=== PATIENT | female | born 1945 | race Caucasian/White ===

== ENCOUNTER 2018-12-20 19:27 | Observation (INO) ==
--- NOTE | 2018-12-20 19:33 | Emergency Department Note ---
Disposition Clinical Impression: Acute exacerbation of chronic obstructive airways disease Altered mental status Qualifiers: Altered mental status type: somnolence Qualified Code(s): R40.0 - Somnolence Acute respiratory failure Qualifiers: Respiratory failure complication: hypercapnia Qualified Code(s): J96.02 - Acute respiratory failure with hypercapnia Alcohol intoxication Qualifiers: Complication of substance-induced condition: uncomplicated Qualified Code(s): F10.920 - Alcohol use, unspecified with intoxication, uncomplicated Disposition: Admitted As Inpatient Condition: Fair Time of Disposition: 21:28 Altered Mental Status HPI - General Chief Complaint: ED Altered Mental Status Stated Complaint: POSSIBLE STROKE /AMS Time Seen by Provider: 12/20/18 19:30 Source: patient, EMS Mode of arrival: EMS Limitations: altered mental status Nursing Notes Reviewed: Yes Vital Signs Reviewed: Yes - History of Present Illness HPI Narrative: Patient has been brought in by EMS with a report of altered mental status. She was found poorly responsive on the floor at about 6:15 this evening. Squad was dispatched 6:48 PM. A grandson had gone over to do some yard work and found her on the floor. Her last visualized well was early in the morning but she was texting family as recently as 4 in the afternoon and was not having any stated trouble. She has not had any apparent trauma. Initially she was not speaking and she seemed to have a weak post secondary professional in the left hand. She has been brought in by EMS for evaluation. private equity associate were told that she is normally alert, ambulatory, walking about and driving herself. On arrival here she is answering all questio ns and following all commands. She is talking but weakly and is oriented to person, place and time. She does not have recollection of what happened or why she was on the floor. Patient specifically denied any type of headache or difficulty with vision. She makes good eye contact. Chest chest pain, palpitation or shortness of breath. She is audibly wheezing, however, and appears dyspneic. She has abdominal pain, nausea or vomiting. She follows all commands and moves all extremities. She denies a feeling of localized weakness or numbness. MD complaint: altered mental status, confusion, decreased responsiveness, weakness Onset (ago): hour(s) Timing confirmed by: family member Pain Severity: none Consistency of Symptoms: constant (Improving) Associated symptoms: Reports: malaise, weakness, difficulty walking. Denies: chest pain, cough, diaphoresis, fever, chills, headaches, loss of appetite, nausea/vomiting, rash, seizure, shortness of breath, syncope, foul smelling urine, diarrhea, incontinence Treatments prior to arrival: EMS treatment/medication - Related Data Home Medications Medication Instructions Recorded Confirmed Budesonide/Formoterol 160/4.5 2 puff IH BID 08/13/16 07/21/17 [Symbicort 160/4.5] Carvedilol 12.5 mg PO BID 08/13/16 07/21/17 Furosemide [Lasix] 40 mg PO DAILY 08/13/16 07/21/17 Ipratropium/Albuterol Neb [Duoneb] 3 ml IH Q6H PRN 08/13/16 07/21/17 Lisinopril [Zestril] 10 mg PO DAILY 08/13/16 07/21/17 Potassium Chloride [Klor-Con 8 meq PO DAILY 08/13/16 07/21/17 Sprinkle] Ubidecarenone/Vitamin E Mixed 1 cap PO DAILY 08/13/16 07/21/17 [Ffy95-Sts E 100 mg-10 Unit Sfg] BuPROPion SR (12 HR) [Wellbutrin 150 mg PO BID 07/09/17 07/21/17 SR] Previous Rx's Medication Instructions Recorded predniSONE [PredniSONE] 10 mg PO DAILY #30 tablet 07/11/17 Clindamycin HCl [Cleocin HCl] 300 mg PO TID #21 capsule 07/21/17 Allergies Allergy/AdvReac Type Severity Reaction Status Date / Time sulfamethoxazole Allergy Rash Verified 12/20/18 19:35 [From Bactrim] trimethoprim [From Bactrim] Allergy Rash Verified 12/20/18 19:35 codeine AdvReac Vomiting Verified 12/20/18 19:35 hydromorphone [From Dilaudid] AdvReac Hallucinati Verified 12/20/18 19:35 ng All systems ED: reviewed and negative except as stated. Past Medical History - Past Medical History Attestation: Yes The following information was validated with the patient. Source: patient, old records reviewed, nursing notes reviewed Medical history: Reports: cardiomyopathy, COPD, hypertension. Denies: seizures Surgical history: Reports: , orthopedic, other Psychiatric history: Reports: anxiety HEARING AID TECHNICIAN history: Reports: no HEARING AID TECHNICIAN history - Social History Smoking Status: Never smoker Smokeless Tobacco Status: No Alcohol use: Reports: none Drug use: Reports: none Physical Exam - General Limitations: altered mental status (Sluggish but appropriate in her responses.) General appearance: in no apparent distress, other (Appear sleepy.) - Head Head exam: atraumatic, normocephalic, normal inspection - Eye Eye exam: Present: normal appearance, PERRL, EOMI, miosis (2-3 mm bilaterally.). Absent: scleral icterus - ENT ENT exam: normal exam, normal oropharynx, mucous membranes moist - Neck Neck exam: Present: normal inspection, full ROM, trachea midline - Chest Chest inspection: Present: normal inspection, symmetric chest wall rise - Respiratory Respiratory exam: Present: wheezes, prolonged expiratory phase. Absent: respiratory distress, accessory muscle use - Cardiovascular Cardiovascular exam: Present: regular rate, normal rhythm, normal heart sounds. Absent: tachycardia - Abdominal Exam Abdominal exam: Present: soft, Non-Tender, normal bowel sounds. Absent: tenderness, distention, guarding, rebound, rigidity - Extremities Exam Extremities exam: Present: normal inspection, full ROM, normal capillary refill. Absent: tenderness, pedal edema - Expanded Lower Extremity Exam Neurovascular/Tendon exam: Present: normal capillary refill. Absent: motor deficit, sensory deficit, tendon deficit Gait: not tested/not observed - Neurological Exam Neurological exam: Present: alert, oriented X3, CN II-XII intact, reflexes normal, other (Stroke scale of 0. She does have generalized weakness but nothing localizing.). Absent: motor sensory deficit - Psychiatric Psychiatric exam: Present: normal mood, flat affect. Absent: agitated, anxious - Skin Skin exam: Present: warm, dry, intact, normal color. Absent: diaphoresis, pallor Course Course Narrative: 2017: Patient does show some mild respite or acidosis and CO2 retention. With her stomach tight, wheezing and being sluggish, I suspect she does have some acute on chronic respiratory failure and CO2 narcosis. We will try a trial of BiPAP to see if this assists in her respiratory status and mentation. 2120: Care has been discussed with the family and Dr. Diaz. The patient will be brought in for observation and continued hydration as well as respiratory protocol. Her neurologic status will be followed. She is alert, interactive but is somewhat sluggish at this time. The family identifies that she occasionally has some wine. They have figured out that she had somewhat of a nephew's moonshine. They do not believe that she realized how potent this was. They state that she is not a routine drinker. Vital Signs Temperature 98.2 F 12/20/18 19:28 Pulse Rate 72 12/20/18 19:28 Respiratory Rate 20 12/20/18 19:28 Blood Pressure 118/58 12/20/18 19:28 O2 Sat by Pulse Oximetry 96 12/20/18 19:28 Temperature 97.5 F L 12/20/18 21:45 Pulse Rate 73 12/20/18 21:45 Respiratory Rate 20 12/20/18 21:45 Blood Pressure 102/62 12/20/18 21:45 O2 Sat by Pulse Oximetry 95 12/20/18 21:45 Oxygen Delivery Oxygen Delivery Bipap Altered Mental Status - Differential Diagnosis Likely: altered mental status, delirium, hypoglycemia, hyponatremia, subarachnoid hemorrhage, substance use - Medical Records Medical records reviewed: Yes I reviewed the patient's medical records. - Lab Data Lab results reviewed: Yes I reviewed the patient's lab results. Result diagrams: 12/20/18 19:40 12/20/18 19:40 Lab Results 12/20/18 12/20/18 12/20/18 Range/Units 19:40 19:40 19:40 WBC 7.8 (4.3-11.1) K/mcL RBC 4.91 (3.82-4.97) M/mcL Hgb 15.3 (11.5-15.4) g/dL Hct 45.3 H (35.3-44.9) % MCV 92.3 (83.0-100.0) fL MCH 31.2 (28.0-33.3) pg MCHC 33.8 (31.6-35.5) g/dL RDW 14.8 H (11.5-14.5) % Plt Count 235 (140-400) K/mcL MPV 9.0 L (9.4-12.4) fL Immature Gran % 0.5 (0-4) % Seg Neutrophils % 59.2 % Lymphocytes % 26.6 % Monocytes % 9.4 % Eosinophils % 3.5 % Basophils % 0.8 % Neutrophils # 4.6 (1.6-8.9) K/mcL Lymphocytes # 2.1 (0.6-4.6) K/mcL Monocytes # 0.7 (0.0-1.3) K/mcL Eosinophils # 0.3 (0.0-0.6) K/mcL Basophils # 0.1 (0.0-0.2) K/mcL PT 11.7 (9.4-12.1) Seconds INR 1.0 APTT 37.9 H (26.0-36.0) Seconds Sample Site ABG pH (7.32-7.45) pH Units ABG pCO2 (35-45) mmHg ABG pO2 (85-104) mmHg ABG HCO3 (21-27) mEq/L ABG Total CO2 (20-26) mEq/L ABG O2 Saturation (95-98) % ABG Base Excess (-2 to 3) mEq/L Rasheed Test O2 Delivery Device Inspired O2 (1-15=lpm [id number]=%) Sodium 135 L (136-145) mEq/L Potassium 3.8 (3.5-5.1) mEq/L Chloride 98 (98-107) mEq/L Carbon Dioxide 28 (23-29) mEq/L BUN 12 (8-23) mg/dL Creatinine 0.59 L (0.60-1.20) mg/dL Est GFR ( Amer) > 60 (> 60) Est GFR (Non-Af Amer) > 60 (> 60) BUN/Creatinine Ratio 20 (6-26) Glucose 107 H (70-105) mg/dL Calculated Osmolality 280 (280-300) Calcium 8.6 (8.6-10.3) mg/dL Total Bilirubin 0.4 (0.3-1.0) mg/dL Direct Bilirubin 0.0 (0.0-0.2) mg/dL Indirect Bilirubin 0.4 (0.0-1.2) mg/dL AST 17 (13-39) Units/L ALT 12 (7-52) Units/L Alkaline Phosphatase 59 (34-104) Units/L Troponin I < 0.03 (< 0.04) ng/mL Serum Total Protein 6.3 L (6.4-8.9) g/dL Albumin 3.9 (3.5-5.7) g/dL Globulin 2.4 (2.4-3.5) g/dL Albumin/Globulin Ratio 1.6 (1.1-2.2) Urine Color (Yellow) Urine Clarity (Clear) Urine pH (5.0-8.0) pH Units Ur Specific [place] (1.010-1.025) Urine Protein (Neg-Trace) mg/dL Urine Glucose (UA) (Normal) mg/dL Urine Ketones (Negative) mg/dL Urine Blood (Negative) Urine Nitrite (Negative) Urine Bilirubin (Negative) Urine Urobilinogen (Normal) mg/dL Ur Leukocyte Esterase (Negative) Ur Culture Indicated? (NO) Urine Opiates Screen (Isfrhh=926) ng/mL Ur Buprenorphine Scrn (Cutoff=5) ng/mL Ur Oxycodone Screen (Cutoff= 100) ng/mL Ur Barbiturates Screen ([place]=411) ng/mL Ur Phencyclidine Scrn (Cutoff=25) ng/mL Ur Amphetamines Screen (Mwobgf=2780) ng/mL U Benzodiazepines Scrn (Vmpgic=890) ng/mL Urine Cocaine Screen (Cutoff= 300) ng/mL U Marijuana (THC) Screen (Cutoff = 50) ng/mL Ur Drug Screen Interp Ethyl Alcohol 261 H (Less than 10) mg/dL 12/20/18 12/20/18 12/20/18 Range/Units 20:10 20:18 20:18 WBC (4.3-11.1) K/mcL RBC (3.82-4.97) M/mcL Hgb (11.5-15.4) g/dL Hct (35.3-44.9) % MCV (83.0-100.0) fL MCH (28.0-33.3) pg MCHC (31.6-35.5) g/dL RDW (11.5-14.5) % Plt Count (140-400) K/mcL MPV (9.4-12.4) fL Immature Gran % (0-4) % Seg Neutrophils % % Lymphocytes % % Monocytes % % Eosinophils % % Basophils % % Neutrophils # (1.6-8.9) K/mcL Lymphocytes # (0.6-4.6) K/mcL Monocytes # (0.0-1.3) K/mcL Eosinophils # (0.0-0.6) K/mcL Basophils # (0.0-0.2) K/mcL PT (9.4-12.1) Seconds INR APTT (26.0-36.0) Seconds Sample Site R Radial ABG pH 7.28 L (7.32-7.45) pH Units ABG pCO2 58 H (35-45) mmHg ABG pO2 129 H (85-104) mmHg ABG HCO3 27 (21-27) mEq/L ABG Total CO2 29 H (20-26) mEq/L ABG O2 Saturation 98 (95-98) % ABG Base Excess -1 (-2 to 3) mEq/L Rasheed Test Positive O2 Delivery Device Cannula Inspired O2 3.0 (1-15=lpm [id number]=%) Sodium (136-145) mEq/L Potassium (3.5-5.1) mEq/L Chloride (98-107) mEq/L Carbon Dioxide (23-29) mEq/L BUN (8-23) mg/dL Creatinine (0.60-1.20) mg/dL Est GFR ( Amer) (> 60) Est GFR (Non-Af Amer) (> 60) BUN/Creatinine Ratio (6-26) Glucose (70-105) mg/dL Calculated Osmolality (280-300) Calcium (8.6-10.3) mg/dL Total Bilirubin (0.3-1.0) mg/dL Direct Bilirubin (0.0-0.2) mg/dL Indirect Bilirubin (0.0-1.2) mg/dL AST (13-39) Units/L ALT (7-52) Units/L Alkaline Phosphatase (34-104) Units/L Troponin I (< 0.04) ng/mL Serum Total Protein (6.4-8.9) g/dL Albumin (3.5-5.7) g/dL Globulin (2.4-3.5) g/dL Albumin/Globulin Ratio (1.1-2.2) Urine Color Yellow (Yellow) Urine Clarity Clear (Clear) Urine pH 5.0 (5.0-8.0) pH Units Ur Specific [place] 1.015 (1.010-1.025) Urine Protein Negative (Neg-Trace) mg/dL Urine Glucose (UA) Normal (Normal) mg/dL Urine Ketones Negative (Negative) mg/dL Urine Blood Negative (Negative) Urine Nitrite Negative (Negative) Urine Bilirubin Negative (Negative) Urine Urobilinogen Normal (Normal) mg/dL Ur Leukocyte Esterase Negative (Negative) Ur Culture Indicated? NO (NO) Urine Opiates Screen Negative (Lhffcp=679) ng/mL Ur Buprenorphine Scrn Negative (Cutoff=5) ng/mL Ur Oxycodone Screen Negative (Cutoff= 100) ng/mL Ur Barbiturates Screen Negative (Xrgcxu=392) ng/mL Ur Phencyclidine Scrn Negative (Cutoff=25) ng/mL Ur Amphetamines Screen Negative (Aztrnp=7127) ng/mL U Benzodiazepines Scrn Negative (Ipxfqy=136) ng/mL Urine Cocaine Screen Negative (Cutoff= 300) ng/mL U Marijuana (THC) Screen Negative (Cutoff = 50) ng/mL Ur Drug Screen Interp See Below Ethyl Alcohol (Less than 10) mg/dL - Radiology Data Radiology results reviewed: Yes I reviewed the patient's radiology results. Single view chest x-ray is performed. This does not demonstrate evidence for infiltrate, effusion, pneumothorax, foreign body or heart failure. There is mild increase interstitial markings but no overt edema. The cardiac silhouette is enlarged. I do not see abnormality to the osseous structures of the chest. This is on my interpretation. CT head is performed. This is reviewed on bone and soft tissue windows. There is no evidence for acute intracranial bleed, shift, mass or edema. Patient has some mild frontal atrophy. Mastoids and sinuses appear normal. There is no fracture evident. This is on my interpretation. Impressions Chest X-Ray 12/20/18 19:33 IMPRESSION: Prominent markings bilaterally, likely chronic. Recurrent edema not excluded Increased density projecting over the 7th posterior rib on the right is likely a confluence of shadows. A small nodule is considered less likely. Upright two view chest is recommended for better evaluation No acute abnormality otherwise. D/ / Zacarias Edwards / Zacarias Edwards Interpreting Provider: Zacarias Edwards Head CT 12/20/18 19:33 IMPRESSION: No acute intracranial abnormality. D/ / El Saul MD / El Saul MD Interpreting Provider: El Saul MD - EKG Data EKG attestation: Yes I reviewed and interpreted this EKG. EKG shows normal: sinus rhythm, axis, intervals, QRS complexes, ST-T waves Rate: normal (77) Interpretation: no acute changes, other (Sinus rhythm with a sliding artifact. I do not see ST or T-wave changes for acute ischemia or infarction. This is on my interpretation.) TPA Checklist - LKW: 3-4.5 hrs Add. Warnings/Precautions Patient/family understanding: The patient/family members have been counseled and understood the risk, benefit, and alternatives of treatment. Critical Care Time Critical Care Time: Yes Total Critical Care Time: 70 Attestation: As this patient did present with signs and symptoms of potential life- threatening illness requiring my urgent intervention, total critical care time in this patient's care has been 70 minutes, not withstanding separately reportable procedures.
[2018-12-20] MEDS ORDERED: Ipratropium/Albuterol Neb 3 ML IH ONE (19:49)
[2018-12-20 19:50] LABS: Basophils # 0.1 K/mcL (0.0-0.2); Basophils % 0.8 %; Eosinophils # 0.3 K/mcL (0.0-0.6); Eosinophils % 3.5 %; Hematocrit 45.3 % (35.3-44.9); Hemoglobin 15.3 g/dL (11.5-15.4); Immature Granulocytes % 0.5 % (0-4); Lymphocytes # 2.1 K/mcL (0.6-4.6); Lymphocytes % 26.6 %; Mean Corpuscular HGB Conc 33.8 g/dL (31.6-35.5); Mean Corpuscular Hemoglobin 31.2 pg (28.0-33.3); Mean Corpuscular Volume 92.3 fL (83.0-100.0); Monocytes # 0.7 K/mcL (0.0-1.3); Monocytes % 9.4 %; Neutrophils # 4.6 K/mcL (1.6-8.9); Platelet Count 235 K/mcL (140-400); Red Blood Count 4.91 M/mcL (3.82-4.97); Red Cell Distribution Width 14.8 % (11.5-14.5); Segmented Neutrophils % 59.2 %; White Blood Count 7.8 K/mcL (4.3-11.1)
[2018-12-20 20:06] LABS: Alanine Aminotransferase 12 Units/L (7-52); Albumin 3.9 g/dL (3.5-5.7); Albumin/Globulin Ratio 1.6 (1.1-2.2); Alkaline Phosphatase 59 Units/L (34-104); Aspartate Amino Transferase 17 Units/L (13-39); BUN/Creatinine Ratio 20 (6-26); Bilirubin,Indirect 0.4 mg/dL (0.0-1.2); Bilirubin,Total 0.4 mg/dL (0.3-1.0); Blood Urea Nitrogen 12 mg/dL (8-23); Calcium 8.6 mg/dL (8.6-10.3); Carbon Dioxide 28 mEq/L (23-29); Chloride 98 mEq/L (98-107); Ethanol 261 mg/dL (Less than 10); Globulin 2.4 g/dL (2.4-3.5); Glucose 107 mg/dL (70-105); Osmolality,Calculated 280 (280-300); Potassium 3.8 mEq/L (3.5-5.1); Prothrombin Time 11.7 Seconds (9.4-12.1); Sodium 135 mEq/L (136-145); Total Protein 6.3 g/dL (6.4-8.9); eGFR For African Americans > 60 (> 60); eGFR For Non-African Americans > 60 (> 60)
[2018-12-20 20:09] LABS: Activated Partial Thrombo Time 37.9 Seconds (26.0-36.0)
[2018-12-20 20:10] LABS: Troponin I < 0.03 ng/mL (< 0.04)
[2018-12-20 20:13] LABS: ABG Base Excess -1 mEq/L (-2 to 3); ABG HCO3 27 mEq/L (21-27); ABG Oxygen Saturation 98 % (95-98); ABG PCO2 58 mmHg (35-45); ABG PH 7.28 pH Units (7.32-7.45); ABG PO2 129 mmHg (85-104); ABG TCO2 29 mEq/L (20-26)
[2018-12-20 20:30] LABS: Bilirubin,Urine Negative (Negative); Blood,Urine Negative (Negative); Clarity,Urine Clear (Clear); Color,Urine Yellow (Yellow); Glucose,Urine (UA) Normal (Normal); Ketones,Urine Negative (Negative); Leukocyte Esterase,Urine Negative (Negative); Nitrite,Urine Negative (Negative); Protein,Urine Negative (Neg-Trace); Specific Gravity,Urine 1.015 (1.010-1.025); Urobilinogen,Urine Normal (Normal)
[2018-12-20 20:41] LABS: Amphetamine Screen,Urine Negative ng/mL (Cutoff=1000); Barbiturate Screen,Urine Negative ng/mL (Cutoff=200); Benzodiazepines Screen,Urine Negative ng/mL (Cutoff=200); Cannabinoid Screen,Urine Negative ng/mL (Cutoff = 50); Cocaine Screen,Urine Negative ng/mL (Cutoff= 300); Opiate Screen,Urine Negative ng/mL (Cutoff=300); Phencyclidine Screen,Urine Negative ng/mL (Cutoff=25)
[2018-12-20] MEDS ORDERED: Naloxone 0.4 MG/ML INJ IVP PRN (21:23)
[2018-12-20] MEDS ORDERED: MOM Conc 10 ML UD.LIQ PO PRN (21:23)
[2018-12-20] MEDS ORDERED: Ondansetron ODT 4 MG TAB.RAPDIS SL PRN (21:23)
[2018-12-20] MEDS ORDERED: Mag Hydrox/Al Hydrox/Simeth 30 ML UDC PO PRN (21:23)
[2018-12-20] MEDS ORDERED: Albuterol 2.5 MG/3 ML NEBULIZER IH PRN (21:26)
[2018-12-20] MEDS: 0.9 % Sodium Chloride 1,000 ML IVC SCH (21:52)
[2018-12-20] MEDS: Ipratropium/Albuterol Neb 3 ML IH SCH (22:32)
[2018-12-21] MEDS: Folic Acid 1 MG TABLET PO SCH ×2 (00:54→09:01)
[2018-12-21] MEDS: Thiamine (B-1) 100 MG TABLET PO SCH ×2 (00:55→09:01)
[2018-12-21] MEDS: Ipratropium/Albuterol Neb 3 ML IH SCH ×2 (04:46→09:44)
[2018-12-21] MEDS: 0.9 % Sodium Chloride 1,000 ML IVC SCH (04:57)
[2018-12-21 07:47] VITALS: BP 140/79
[2018-12-21] MEDS ORDERED: Acetaminophen 325 MG TABLET PO PRN (08:05)
--- NOTE | 2018-12-21 11:30 | Internal Med History&Physical ---
Date of Encounter: 12/21/18 Time of Encounter: 11:00 Assessment and Plan (1) Acute respiratory failure Current visit: Yes Status: Acute Likely due to alcohol intoxication. Qualifiers: Respiratory failure complication: hypercapnia Qualified Code(s): J96.02 - Acute respiratory failure with hypercapnia (2) Alcohol intoxication Current visit: Yes Status: Acute She states she feels back to her baseline now. Qualifiers: Complication of substance-induced condition: uncomplicated Qualified Code(s): F10.920 - Alcohol use, unspecified with intoxication, uncomplicated (3) CAD (coronary artery disease) Current visit: Yes Status: Chronic Continue Coreg Qualifiers: Coronary Disease-Associated Artery/Lesion type: [place] artery [place] vs. transplanted heart: [place] heart Associated angina: without angina Qualified Code(s): I25.10 - Atherosclerotic heart disease of [place] coronary artery with out angina pectoris (4) CHF (congestive heart failure) Current visit: No Status: Chronic Continue Coreg, Lasix, and lisinopril. Qualifiers: Heart failure type: combined systolic and diastolic Heart failure chronicity: chronic Qualified Code(s): I50.42 - Chronic combined systolic (congestive) and diastolic (congestive) heart failure Internal Medicine - H&P: HPI Chief complaint: Fall, intoxication Admitted From: Emergency Dept Plans for Post Hospital Care: Home History of present illness: Ms. Rivera is a 73 year old female who was brought to emergency room after being found on the floor at home by her son. She does not recall the fall and states there was no significant injury sustained. She was evaluated in emergency room was found to have blood alcohol level of 261 MG/DL. She admits she drank 2 beers and some "moonshine". She was admitted to [facility] floor for ongoing care needs. She reports her last alcohol consumption prior to yesterday was approximately one month ago. She denies previous falls syncope or near syncopal episodes. She denies large distribution strokes or seizures. She states she feels back to her baseline now and wishes to be discharged home. Past Med Surg Social Fam HX - Past Medical History Medical history: cardiomyopathy, COPD, hypertension Psychiatric history: anxiety - Past Surgical History Surgical History: , orthopedic, other Additional surgical history: carpal tunnel and trigger finger release - Social History Smoking Status: Current every day smoker Smokeless Tobacco Status: No Alcohol use: occasionally, recent Drug use: none - Family History Mother Living Status: Hx Family Cardiac Disorders: Yes Father Living Status: Internal Medicine - H&P: Meds Budesonide/Formoterol 160/4.5 [Symbicort 160/4.5] 2 puff IH BID 08/13/16 [History] Carvedilol 12.5 mg PO BID 08/13/16 [History] Furosemide [Lasix] 40 mg PO DAILY 08/13/16 [History] Ipratropium/Albuterol Neb [Duoneb] 3 ml IH Q6H PRN 08/13/16 [History] Lisinopril [Zestril] 10 mg PO DAILY 08/13/16 [History] Potassium Chloride [Klor-Con Sprinkle] 8 meq PO DAILY 08/13/16 [History] Ubidecarenone/Vitamin E Mixed [Fsd90-Rno E 100 mg-10 Unit Sfg] 1 cap PO DAILY 08/13/16 [History] BuPROPion SR (12 HR) [Wellbutrin SR] 150 mg PO BID 07/09/17 [History] predniSONE [PredniSONE] 10 mg PO DAILY #30 tablet 07/11/17 [Rx] Clindamycin HCl [Cleocin HCl] 300 mg PO TID #21 capsule 07/21/17 [Rx] Allergy/AdvReac Type Severity Reaction Status Date / Time sulfamethoxazole Allergy Rash Verified 12/20/18 19:35 [From Bactrim] trimethoprim [From Bactrim] Allergy Rash Verified 12/20/18 19:35 codeine AdvReac Vomiting Verified 12/20/18 19:35 hydromorphone [From Dilaudid] AdvReac Hallucinati Verified 12/20/18 19:35 ng All Systems PM: A 10-system review of systems was performed and is negative for pertinent findings except as documented above in the HPI. Review of systems: Gen.: She states her weight has been stable for several months Cardiovascular: She has history of hypertension and known ASHD status post [place] followed by three-vessel CABG 2013. Echocardiogram 07/09/2017 showed LVEF of 45-50%. There was mild mitral regurgitation and mild tricuspid regurgitation. The interventricular septum and posterior wall thickness measurements were 1.00 cm each. E/A ratio was 1.4. She denies DVT or pulmonary embolus. Respiratory: She has smoked since age 14 but denies ever smoking 1 pack per day. Pulmonary function tests 11/08/2017 showed FEV1 62% predicted, FEV1 54% predicted, FEV1/FVC 66%, MVV 53% predicted, RV 179% predicted, and DLCO (uncorrected) 44%. There was significant improvement in FEV1 and FVC postbronchodilator. She was diagnosed with moderate obstructive lung disease. She reports she has supplemental oxygen at home but does not wear it routinely. GI: She denies disorders of her liver gallbladder or exocrine pancreas : She denies hematuria dysuria or kidney stones Neurologic: As per history of present illness Endocrine: She denies diabetes thyroid disease or hyperlipidemia Hematology/oncology: She denies blood disorders cancers or anemia Psychiatric: She states she has been diagnosed with depression in the past but no longer takes medication. She denies other mental health diagnoses. [place] skeletal: She has DJD and has had surgeries for "trigger finger". She denies gout or other bone joint or muscle disorders. - Constitutional Vitals: Temp Pulse Resp BP Pulse Ox 97.7 F 76 16 140/79 92 12/21/18 07:44 12/21/18 07:44 12/21/18 09:57 12/21/18 07:44 12/21/18 09:57 Exam: Gen.: She is a well-developed well-nourished female sitting on the side of bed who appears in no acute distress HEENT: Head is atraumatic and normocephalic. Eyes: EOMI. There is no scleral icterus. Mouth: Mucosa is moist. Neck: Supple and nontender. There is no thyromegaly or adenopathy noted. Heart: Regular without murmurs gallops or ectopics Lungs: No wheezes or crackles are heard. Abdomen: Soft and nontender. No masses or guarding are noted. Extremities: She has significant DJD changes of her hands. There is no pitting edema of her legs. Dorsalis pedis and posterior tibial pulses are trace palpable bilaterally. Neurologic: Mental status: She is talkative and a good historian. Cranial nerves: Smile is symmetric. Forehead wrinkles bilaterally. Tongue protrudes midline. EOMI. Motor: There is no pronator drift. Cerebellar: Finger to nose is intact bilaterally. Skin: Warm and dry Internal Med - H&P Results - Labs CBC & Chem 7: 12/20/18 19:40 12/20/18 19:40 Labs: Short CBC 12/20/18 Range/Units 19:40 WBC 7.8 (4.3-11.1) K/mcL Hgb 15.3 (11.5-15.4) g/dL Hct 45.3 H (35.3-44.9) % Plt Count 235 (140-400) K/mcL Neutrophils # 4.6 (1.6-8.9) K/mcL BMP 12/20/18 19:40 Sodium 135 L Potassium 3.8 Chloride 98 Carbon Dioxide 28 BUN 12 Creatinine 0.59 L Glucose 107 H Calcium 8.6 Cardiac Enzymes 12/20/18 Range/Units 19:40 Troponin I < 0.03 (< 0.04) ng/mL Liver Function 12/20/18 Range/Units 19:40 Total Bilirubin 0.4 (0.3-1.0) mg/dL Direct Bilirubin 0.0 (0.0-0.2) mg/dL AST 17 (13-39) Units/L ALT 12 (7-52) Units/L Alkaline Phosphatase 59 (34-104) Units/L Albumin 3.9 (3.5-5.7) g/dL Urine 12/20/18 Range/Units 20:18 Urine Color Yellow (Yellow) Urine Clarity Clear (Clear) Urine pH 5.0 (5.0-8.0) pH Units Ur Specific [place] 1.015 (1.010-1.025) Urine Protein Negative (Neg-Trace) mg/dL Urine Glucose (UA) Normal (Normal) mg/dL - ABG Interpretation ABG results: 12/20/18 20:10 ABG pH 7.28 L ABG pCO2 58 H ABG pO2 129 H ABG HCO3 27 ABG Total CO2 29 H ABG O2 Saturation 98 ABG Base Excess -1 - Impressions ITS Impressions Chest X-Ray 12/20/18 19:33 IMPRESSION: Prominent markings bilaterally, likely chronic. Recurrent edema not excluded Increased density projecting over the 7th posterior rib on the right is likely a confluence of shadows. A small nodule is considered less likely. Upright two view chest is recommended for better evaluation No acute abnormality otherwise. D/ / Zacarias Edwards / Zacarias Edwards Interpreting Provider: Zacarias Edwards Head CT 12/20/18 19:33 IMPRESSION: No acute intracranial abnormality. D/ / El Saul MD / El Saul MD Interpreting Provider: El Saul MD
--- NOTE | 2018-12-21 11:46 | Discharge Summary ---
Date of Encounter: 12/21/18 Time of Encounter: 11:00 - Discharge Diagnosis (1) Acute respiratory failure Priority: Primary Status: Acute Qualifiers: Respiratory failure complication: hypercapnia Qualified Code(s): J96.02 - Acute respiratory failure with hypercapnia (2) Alcohol intoxication Priority: Secondary Status: Acute Qualifiers: Complication of substance-induced condition: uncomplicated Qualified Code(s): F10.920 - Alcohol use, unspecified with intoxication, uncomplicated (3) CAD (coronary artery disease) Priority: Secondary Status: Chronic Qualifiers: Coronary Disease-Associated Artery/Lesion type: [place] artery [place] vs. transplanted heart: [place] heart Associated angina: without angina Qualified Code(s): I25.10 - Atherosclerotic heart disease of [place] coronary artery without angina pectoris (4) CHF (congestive heart failure) Priority: Secondary Status: Chronic Qualifiers: Heart failure type: combined systolic and diastolic Heart failure chronic ity: chronic Qualified Code(s): I50.42 - Chronic combined systolic (congestive) and diastolic (congestive) heart failure Hospital course: Ms. Rivera is a 73 year old female who was brought to emergency room after being found on the floor at home by her son. She does not recall the fall and states there was no significant injury sustained. She was evaluated in emergency room was found to have blood alcohol level of 261 MG/DL. She admits she drank 2 beers and some "moonshine". She was admitted to [facility] for ongoing care needs. Initial orders were written by the emergency room physician. I saw her on December 21 and performed a history physical and discharge. When I saw her she stated she felt back to her baseline. She had no significant complaints of pain or other new problems. I had a discussion with her about the importance of discontinuing alcohol and tobacco use. I also encouraged her to wear home oxyge n that has been prescribed. She wished to be discharged home. She will follow with her PCP Carson Jennings CNP within 1 week. - Time Spent with Patient Total time spent providing and/or coordinating discharge services: - Discharge Medications Prescriptions: Continued BuPROPion SR (12 HR) [Wellbutrin SR] 150 mg PO BID Lisinopril [Zestril] 10 mg PO DAILY Furosemide [Lasix] 40 mg PO DAILY Carvedilol 12.5 mg PO BID Ubidecarenone/Vitamin E Mixed [Vdp77-Mnd E 100 mg-10 Unit Sfg] 1 cap PO DAILY Potassium Chloride [Klor-Con Sprinkle] 8 meq PO DAILY Ipratropium/Albuterol Neb [Duoneb] 3 ml IH Q6H PRN PRN Reason: Dyspnea Budesonide/Formoterol 160/4.5 [Symbicort 160/4.5] 2 puff IH BID Discontinued predniSONE [PredniSONE] 10 mg PO DAILY #30 tablet Clindamycin HCl [Cleocin HCl] 300 mg PO TID #21 capsule Home Medications: Budesonide/Formoterol 160/4.5 [Symbicort 160/4.5] 2 puff IH BID 08/13/16 [History] Carvedilol 12.5 mg PO BID 08/13/16 [History] Furosemide [Lasix] 40 mg PO DAILY 08/13/16 [History] Ipratropium/Albuterol Neb [Duoneb] 3 ml IH Q6H PRN 08/13/16 [History] Lisinopril [Zestril] 10 mg PO DAILY 08/13/16 [History] Potassium Chloride [Klor-Con Sprinkle] 8 meq PO DAILY 08/13/16 [History] Ubidecarenone/Vitamin E Mixed [Eca96-Exp E 100 mg-10 Unit Sfg] 1 cap PO DAILY 08/13/16 [History] BuPROPion SR (12 HR) [Wellbutrin SR] 150 mg PO BID 07/09/17 [History] Allergies/Adverse Reactions: Allergy/AdvReac Type Severity Reaction Status Date / Time sulfamethoxazole Allergy Rash Verified 12/20/18 19:35 [From Bactrim] trimethoprim [From Bactrim] Allergy Rash Verified 12/20/18 19:35 codeine AdvReac Vomiting Verified 12/20/18 19:35 hydromorphone [From Dilaudid] AdvReac Hallucinati Verified 12/20/18 19:35 ng Date of admission: 12/20/18 21:36 Primary care physician: Carson Jennings ARBORICULTURIST - Constitutional Vitals: Temp Pulse Resp BP Pulse Ox 97.7 F 76 16 140/79 92 12/21/18 07:44 12/21/18 07:44 12/21/18 09:57 12/21/18 07:44 12/21/18 09:57 - Patient Status Disposition: Home, Self-Care Condition: Fair - Discharge Instructions Follow Up With: Carson Jennings, ARBORICULTURIST [Advanced Practice Nurse] - 1 week - Diet and Activity Activity: resume usual activities as tolerated, wear oxygen at night Diet: advance to your usual diet
--- NOTE | 2018-12-22 14:04 | Electrocardiograph Report ---
[place] [id number] Test Date: 2018-12-20 Pat Name: Marisa Rivera Department: EDP-15 Room: [facility] Gender: F [place] [employer]: : 1945 Requested By: Harry Boyer Order Number: [id number] Reading MD: Nico Murphy Measurements Intervals [place] Rate: 77 P: 256 KS: 133 QRS: 82 QRSD: 88 T: 138 QT: 455 QTc: 515 Interpretive Statements Sinus rhythm Prolonged QT interval BASELINE ARTIFACT Electronically Signed On 12-22-2018 14:02:36 EDT by Nico Murphy
== END 2018-12-21 12:00 | disposition home or self-care (01) ==
LOC: INPPIK 19:27 → EMEROOPIK 19:27 → INPPIK 22:24
PROVIDERS: ADMIT Internal Medicine; ATTEND Internal Medicine

== ENCOUNTER 2019-07-10 19:05 | Observation (INO) ==
[2019-07-10 20:39] LABS: Basophils % 0.1 %; Hematocrit 45.1 % (35.3-44.9); Hemoglobin 15.2 g/dL (11.5-15.4); Immature Granulocytes % 0.2 % (0-4); Lymphocytes # 0.6 K/mcL (0.6-4.6); Lymphocytes % 6.2 %; Mean Corpuscular HGB Conc 33.7 g/dL (31.6-35.5); Mean Corpuscular Hemoglobin 31.3 pg (28.0-33.3); Mean Platelet Volume 9.7 fL (9.4-12.4); Monocytes # 0.9 K/mcL (0.0-1.3); Monocytes % 9.4 %; Neutrophils # 7.9 K/mcL (1.6-8.9); Platelet Count 156 K/mcL (140-400); Red Blood Count 4.85 M/mcL (3.82-4.97); Red Cell Distribution Width 13.3 % (11.5-14.5); Segmented Neutrophils % 84.1 %; White Blood Count 9.4 K/mcL (4.3-11.1)
[2019-07-10 20:45] LABS: INR 1.2; Prothrombin Time 14.1 Seconds (9.4-12.1)
[2019-07-10 20:53] LABS: Alanine Aminotransferase 15 Units/L (7-52); Albumin 4.1 g/dL (3.5-5.7); Albumin/Globulin Ratio 1.6 (1.1-2.2); Alkaline Phosphatase 53 Units/L (34-104); Aspartate Amino Transferase 24 Units/L (13-39); BUN/Creatinine Ratio 27 (6-26); Bilirubin,Total 0.3 mg/dL (0.3-1.0); Blood Urea Nitrogen 21 mg/dL (8-23); Calcium 8.8 mg/dL (8.6-10.3); Carbon Dioxide 35 mEq/L (23-29); Chloride 89 mEq/L (98-107); Globulin 2.5 g/dL (2.4-3.5); Glucose 141 mg/dL (70-105); Osmolality,Calculated 271 (280-300); Potassium 4.9 mEq/L (3.5-5.1); Sodium 128 mEq/L (136-145); Total Protein 6.6 g/dL (6.4-8.9); eGFR For African Americans > 60 (> 60); eGFR For Non-African Americans > 60 (> 60)
[2019-07-10 21:06] LABS: Troponin I 0.04 ng/mL (< 0.04)
[2019-07-10] MEDS ORDERED: Ipratropium/Albuterol Neb 3 ML IH STA (21:25)
[2019-07-10] MEDS ORDERED: Isovue-370 500 ML BOTTLE IVP ONE (23:09)
[2019-07-11] MEDS ORDERED: Ondansetron 4 MG/2 ML VIAL IVP ONE (00:44)
[2019-07-11] MEDS ORDERED: cefTRIAXone 1,000 MG in 0.9 % Sodium Chloride Mini Bag 100 ML IVPB ONE (00:44)
[2019-07-11] MEDS ORDERED: methylPREDNISolone 125 MG/2 ML VIAL IVP ONE (00:44)
[2019-07-11] MEDS ORDERED: Ketorolac 30 MG/ML VIAL IVP ONE (00:44)
[2019-07-11 01:24] LABS: Bilirubin,Urine Negative (Negative); Blood,Urine Trace-intact (Negative); Clarity,Urine Clear (Clear); Color,Urine Yellow (Yellow); Glucose,Urine (UA) Normal (Normal); Ketones,Urine Negative (Negative); Leukocyte Esterase,Urine Negative (Negative); Nitrite,Urine Negative (Negative); PH,Urine 6.5 pH Units (5.0-8.0); Protein,Urine Negative (Neg-Trace); Urobilinogen,Urine Normal (Normal)
[2019-07-11 01:30] LABS: Bacteria,Urine None Seen per hpf (None-Few); RBC,Urine 0-3 per hpf (0-3); Squamous Epithelial Cell,Urine Few per lpf (None-Few); WBC,Urine 0-3 per hpf (0-3)
[2019-07-11] MEDS ORDERED: Naloxone 0.4 MG/ML INJ IVP PRN (01:57)
[2019-07-11] MEDS ORDERED: Ipratropium/Albuterol Neb 3 ML IH PRN (01:57)
[2019-07-11] MEDS ORDERED: Ondansetron 4 MG/2 ML VIAL IVP PRN (01:57)
[2019-07-11 06:54] LABS: Basophils % 0.1 %; Hematocrit 46.7 % (35.3-44.9); Hemoglobin 15.1 g/dL (11.5-15.4); Immature Granulocytes % 0.1 % (0-4); Lymphocytes # 0.3 K/mcL (0.6-4.6); Mean Corpuscular HGB Conc 32.3 g/dL (31.6-35.5); Mean Corpuscular Hemoglobin 30.8 pg (28.0-33.3); Mean Corpuscular Volume 95.1 fL (83.0-100.0); Mean Platelet Volume 9.8 fL (9.4-12.4); Monocytes # 0.7 K/mcL (0.0-1.3); Monocytes % 8.2 %; Neutrophils # 7.2 K/mcL (1.6-8.9); Platelet Count 157 K/mcL (140-400); Red Blood Count 4.91 M/mcL (3.82-4.97); Red Cell Distribution Width 13.6 % (11.5-14.5); Segmented Neutrophils % 87.6 %; White Blood Count 8.3 K/mcL (4.3-11.1)
[2019-07-11] MEDS ORDERED: carvediloL 6.25 MG TABLET PO SCH (08:00)
[2019-07-11] MEDS ORDERED: MethylPREDNISolone 40 MG/ML VIAL IVP SCH (08:10)
[2019-07-11] MEDS ORDERED: Furosemide 40 MG/4 ML VIAL IVP SCH (09:00)
[2019-07-11] MEDS ORDERED: Azithromycin 500 MG in 0.9 % Sodium Chloride 250 ML IVPB SCH (09:00)
[2019-07-11] MEDS ORDERED: BuPROPion SR (12 HR) 150 MG TABLET PO SCH (09:00)
[2019-07-11] MEDS ORDERED: Potassium Chloride Elixir 20 MEQ/15 ML UDC PO SCH (09:00)
[2019-07-11] MEDS: Albuterol 2.5 MG/3 ML NEBULIZER IH PRN ×2 (09:54→12:06)
[2019-07-11] MEDS ORDERED: 0.9 % Sodium Chloride 250 ML IVC ONE (11:27)
[2019-07-11] MEDS ORDERED: 0.9 % Sodium Chloride 250 ML ONE (11:29)
[2019-07-11 12:21] LABS: ABG Base Excess -3 mEq/L (-2 to 3); ABG HCO3 33 mEq/L (21-27); ABG Oxygen Saturation 97 % (95-98); ABG PCO2 119 mmHg (35-45); ABG PH 7.05 pH Units (7.32-7.45); ABG PO2 131 mmHg (85-104); ABG TCO2 36 mEq/L (20-26)
[2019-07-11] MEDS ORDERED: *HR* Succinylcholine 200 MG/10 ML VIAL IVP ONE (12:30)
[2019-07-11] MEDS ORDERED: *HR* Etomidate 20 MG/10 ML AMPUL IVP ONE (12:30)
[2019-07-11] MEDS ORDERED: Propofol 500 MG/50 ML INFUS..BTL IVC SCH (12:45)
[2019-07-11] MEDS ORDERED: 0.9 % Sodium Chloride 1,000 ML ONE (13:29)
[2019-07-11] MEDS ORDERED: Norepinephrine 4 MG in 0.9 % Sodium Chloride 250 ML IVC SCH (13:45)
[2019-07-11] MEDS ORDERED: Norepinephrine 4 MG in D5% in Water 250 ML IVC SCH (13:45)
[2019-07-11] MEDS ORDERED: Phenylephrine 10 MG in D5% in Water 250 ML IVC SCH (14:15)
[2019-07-11 15:23] VITALS: BP 88/62
[2019-07-12] MEDS ORDERED: cefTRIAXone 1,000 MG in Water for inj. (sterile) 10 ML IVPB SCH (01:00)
== END 2019-07-11 14:27 | disposition short-term general hospital (02) ==
LOC: EMEROOPIK 19:05 → INPPIK 19:05
PROVIDERS: ADMIT Internal Medicine; ATTEND Internal Medicine